=== PATIENT | female | born 1965 | race Caucasian/White ===

== ENCOUNTER → 2017-12-31 10:18 | Outpatient (CLI) | payer SELFPAY ==
[2017-12-31 12:50] LABS: Anion Gap 7 (5-15); BUN 12 mg/dL (7-18); BUN/Creat Ratio 17.4 RATIO (10-20); Calcium,Total 9.2 mg/dL (8.5-10.1); Chloride 104 mmol/L (98-107); Cholesterol 188 mg/dL (200); Creatinine, Serum 0.69 mg/dL (0.55-1.02); EST Glomerular Filtration Rate 94 mL/min (>60); Est Glom Filt Rate - Afr Amer 114 mL/min (>60); Glucose 84 mg/dL (74-106); High Density Lipoprotein 57 mg/dL; Potassium 3.9 mmol/L (3.5-5.1); Sodium Level 140 mmol/L (136-145); Triglycerides 79 mg/dL; Very Low Density Lipoprotein 16 mg/dL (5-40)
== END ==
PROVIDERS: Family Provider Family Medicine; PCP Family Medicine; Visit Provider Family Medicine
DX: Z00.00 Encounter for general adult medical examination without abnormal findings (principal)
CPT/HCPCS: 36415; 80048; 80061

== ENCOUNTER 2018-02-10 06:43 | Day surgery (SDC) | payer SELFPAY ==
--- NOTE | 2018-02-10 | COLBX_PTH ---
PATIENT: KEON RODNEY LOC: EN U#:[id number] AGE/SX: 52/F ROOM: RE02/10/[address]: Dr. Alli Meyer MD : 1965 BED: DIS: 02/10/2018 SPEC #: [id number] RECD: 02/10/18 11:13 STATUS: JUAN PUTNAMSimona #: [id number] SHANE: 02/10/18 00:[address]: Alli Meyer DEPT: SURGICAL PATHOLOGY RECD BY: Eliud Medrano ENTERED: 02/10/18 13:34 SP TYPE: COLON BX OTHR DR: Dr. Ko Camarillo MD Tissues: Cecum, NOS Procedures: Surgery Specimen Level IV HEADER OPERATION: Colonoscopy PRE-OP DIAGNOSIS: Family history colon CA TISSUE SUBMITTED: Cecum polyp biopsy MICROSCOPIC DIAGNOSIS Cecum polyp, biopsy: Fragments of colonic mucosa with focal pigment laden macrophages, consistent with melanosis coli. SJ:rica 4/4/18 MICROSCOPIC DESCRIPTION Slides are reviewed. GROSS DESCRIPTION Received in fixative is one container labeled with the patient's name and designated cecal polyp biopsy. The specimen consists of two irregular fragments of light edmond soft tissue that in aggregate measure 0.6 x 0.3 x 0.2 cm. The specimen is totally submitted in one cassette. / RY:rica 02/10/18 TC:5 CPT: 40831
[2018-02-10 07:15] VITALS: BP 106/66; PULSE 61; RESP 14; TEMP 36.3; O2SAT 97; BMI 34.0
--- NOTE | 2018-02-10 08:25 | PCM.HP.STD ---
Problem List (1) Family history of colon cancer in mother Status: Acute History of Present Illness Date of Admission: 02/10/18 The patient is a 52 year old F family history of colon cancer in her mother who that disease. The patient has had one previous colonoscopy 5 years prior. She had no difficulties with that procedure. She has no personal history of colon polyps. She otherwise states that she is enjoying good health. She denies abdominal pain. There is been no bright red blood per rectum or melena. Past Medical History Allergies No Known Allergies Allergy (Verified 02/04/18 16:09) Home Medications: Ambulatory Orders Medication Instructions Recorded Fluticasone 44 Mcg [Flovent (SP)] 2 puff INHALATION BID PRN 02/04/18 Surgical History: no surgical history Smoking Status: Never smoker Review of Systems Constitutional: Denies: Weight Change Eyes: Denies: Blurred vision, Vision Change HEENT: Denies: Ear Pain, Eye Pain Cardiovascular: Denies: Chest Pain, Claudication Respiratory: Denies: Cough, Shortness of Breath Gastrointestinal: Denies: Hematemesis, Hematochezia Genitourinary: Denies: Dysuria, Hematuria Musculoskeletal: Denies: Leg Pain Skin: Denies: Jaundice Neurological: Denies: Confusion Psychiatric: Denies: Depression Endocrine: Denies: Change in Body Habitus Hematologic/ Lymphatic: Denies: Easy Bleeding VTE Information - Inpt Only VTE Present on Admission: No Patient Problems: Active and Suspected Problems Family history of colon cancer in mother (Acute) - Physical Exam General: Alert, Oriented x3, Cooperative HEENT: Atraumatic Oral: Moist Mucosa Neck: Supple Lungs: Clear to auscultation Cardiovascular: Regular rate, Regular Rhythm Abdomen: Bowel Sounds Present, Soft, Non Tender Extremities: No clubbing Skin: No rashes Musculoskeletal: No Tenderness to Palpation of Joints or Extremities Neurological: Cranial nerves II-XII grossly intact Psych/Mental Status: Appropriate Vital Signs Temp Pulse Resp BP Pulse Ox 97.3 F L 61 14 106/66 97 02/10/18 07:15 02/10/18 07:15 02/10/18 07:15 02/10/18 07:15 02/10/18 07:15 Oxygen Delivery Method Room Air Weight: 197 lb 15.602 oz Body Mass Index (BMI) 34.0 Assessment/Plan Active and Suspected Problems Family history of colon cancer in mother (Acute) I am recommending the patient a colonoscopy with possible biopsy or polypectomy is indicated. She is aware of the technique, benefits, risks, alternatives. She is presenting via our open access program. We will proceed as noted. Alli Meyer M.D., F.A.C.S.
--- NOTE | 2018-02-10 08:47 | PCM.OPRPT ---
Problem List (1) Family history of colon cancer in mother Status: Acute Report of Operation Date of Procedure: 02/10/18 Pre-Operative Diagnosis: Family history of colon cancer in her mother Post-Operative Diagnosis: Sessile polyp of the cecum. Sigmoid and descending diverticulosis Surgery/Procedure Performed:: Colonoscopy with cold forceps cecal polypectomy Description of Surgical Findings:: Timeout and informed consent was obtained. 52-year-old female was taken to the endoscopy suite. She was placed in left loud skin position. Throughout the procedure in aliquots she received total 100 mg Demerol and 3.5 mg of Versed as intravenous sedation. Digital rectal exam performed. Moderate internal and external hemorrhoids. No active bleeding. Flexible colonoscope inserted the rectum advanced through moderately tortuous sigmoid colon. The scope was then readily advanced through the transverse colon. I then was able to nicely achieve access through the ascending colon. The cecum ileocecal valve area was nicely achieved. Bowel prep was good. There was still some liquid stool located throughout the colon but that could be aspirated free. Right on the ileocecal valve there appeared to be a small sessile 5 mm flat polyp. Photograph was obtained. Cold forceps were used to sample and eradicate that lesion. The scope was carefully withdrawn through the ascending colon transverse colon descending colon and sigmoid colon. Extensive sigmoid diverticulosis identified but no evidence of acute inflammatory change. The scope was retroflexed within the rectum. Hemorrhoidal changes noted. Excess fluid and air was aspirated free the procedure was completed with the patient tolerating it well. Impression Sessile polyp of the ileocecal valve. Final pathology pending. Family history of colon cancer in her mother. Patient's previous colonoscopy 5 years ago. Pending pathology will recommend follow-up colonoscopy in 5 years. Cc: Dr. Camarillo Medications were given at 0831. Scope was inserted at 0834. The cecum was reached at 0837. The procedure was completed at 0846. Alli Meyer M.D., F.A.C.S. Type of Anesthesia:: IV Sedation
[2018-02-10 08:50] VITALS: BP 106/66; BP 89/59; PULSE 64; RESP 18; TEMP 5390; TEMP 9734; O2SAT 94
[2018-02-10 08:55] VITALS: BP 106/66; BP 94/59; PULSE 59; RESP 18; O2SAT 93
[2018-02-10 09:00] VITALS: BP 106/66; BP 87/51; PULSE 62; RESP 18; O2SAT 96
[2018-02-10 09:06] VITALS: BP 106/66; BP 92/58; PULSE 61; RESP 18; TEMP 36.8; O2SAT 97
[2018-02-10 10:50] VITALS: BP 106/66
== END 2018-02-10 10:52 | disposition home or self-care (01) ==
LOC: EN 06:45 → AC 06:46
PROVIDERS: Family Provider Family Medicine; PCP Family Medicine; Visit Provider Surgery
PROC: 0DJD8ZZ Inspection of Lower Intestinal Tract, Via Natural or Artificial Opening Endoscopic (ICD-10-PCS; CPT 45378; principal; 2018-02-10 07:55)
DX: K63.89 Other specified diseases of intestine (principal); K57.30 Diverticulosis of large intestine without perforation or abscess without bleeding; K64.4 Residual hemorrhoidal skin tags; K64.8 Other hemorrhoids; Z80.0 Family history of malignant neoplasm of digestive organs
CPT/HCPCS: 45380; 88305; 99152; 99153; J7120

== ENCOUNTER 2020-01-01 15:00 | Emergency (ER) | payer OTHER, SELFPAY ==
[2020-01-01 15:01] VITALS: BP 119/72; PULSE 101; RESP 18; TEMP 36.9; O2SAT 96; BMI 31.6
--- NOTE | 2020-01-01 15:28 | EKG12_ITS ---
Test Reason : CP Blood Pressure : / mmHG Vent. Rate : 087 BPM Atrial Rate : 087 BPM P-R Int : 160 ms QRS Dur : 074 ms QT Int : 356 ms P-R-T Axes : 025 011 018 degrees QTc Int : 428 ms Normal sinus rhythm Low voltage QRS Borderline ECG Confirmed by DANIEL CALDERON, BEULAH ([id number]), advertising editor ZAC WHITNEY ([id number]) on 01/03/2020 2:38:58 PM Referred By: Confirmed By:ANGIE SANCHEZ MD
--- NOTE | 2020-01-01 15:33 | ED.DCSUM_ITS ---
History of Present Illness Chief Complaint: Allergic Reaction Informant: Patient Onset: Today Narrative: Patient states she woke up at midnight last night with what she believes is an allergic reaction. She states she had a headache that was located both in the posterior scalp as well as in the frontal region. She developed hives over her trunk and extremities. She is had some nausea and vomiting. She reports abdominal pain that seem to improve after she vomited. She has not noted fever or chills. She took some charcoal water last night thinking it might be an allergic reaction to some detox tea that she had drank. She does, however, states that she has had this same detox tea in the past without any difficulty. Past Medical History - Allergies and Home Meds Allergies/Adverse Reactions: Allergies No Known Allergies Allergy (Verified 01/01/20 15:01) Primary Care Physician: Ko Camarillo MD [Primary Care Provider] - Past Medical History: None Surgical History: no surgical history Lives: Spouse/ Significant Other Smoking Status: Never smoker Review of Systems General: Reports: Chills. Denies: Fever Eyes: Denies: Visual changes - bilaterally ENT: Denies: Bilateral ear pain, Sore throat Cardiovascular: Reports: Chest pain - Burning sensation in chest. Respiratory: Denies: Dyspnea, Cough Gastrointestinal: Reports: Abdominal pain, Nausea, Vomiting. Denies: Diarrhea Genitourinary: Denies: Dysuria Musculoskeletal: Denies: Extremity Pain Skin: Reports: Rash Neurological: Reports: Headache Allergy: Reports: Uticaria Physical Exam Vital Signs/Narrative: Vital Signs Temp Pulse Resp BP Pulse Ox 01/01/20 15:01 98.5 F 101 H 18 119/72 96 Inital Vital Signs reviewed: Yes General: Well nourished, Well developed Head: Normocephalic ENT: Moist mucous membranes Neck: Supple Cardiovascular: Regular rate, Regular rhythm Respiratory: No distress, CTA bilaterally Abdomen: Soft, Tender - Mild epigastric tenderness.. Negative for: Guarding, Rebound tenderness Extremities: Negative for: Nontender Skin: - - Urticarial lesions noted on the trunk and extremities, lower extremities greater than upper extremities. Neurological: Alert, Oriented x3 Psychological: Normal affect Diagnostic/Tx/Re-eval Laboratory Results 01/01/20 01/01/20 15:17 15:17 WBC 13.2 H RBC 5.50 H Hgb 15.5 H Hct 46.3 MCV 84.2 MCH 28.2 MCHC 33.5 RDW Std Deviation 39.8 RDW Coeff of Ashutosh 13.1 Plt Count 312 MPV 10.2 Immature Gran % (Auto) 0.500 Neut % (Auto) 86.6 H Lymph % (Auto) 8.2 L [place] % (Auto) 4.4 Eos % (Auto) 0.1 Baso % (Auto) 0.2 Absolute Neuts (auto) 11.4 H Absolute Lymphs (auto) 1.08 Nucleated RBC % 0 Sodium 136 Potassium 4.0 Chloride 104 Carbon Dioxide 24.0 Anion Gap 8 BUN 22 H Creatinine 0.75 Estim Creat Clear Calc 75.37 Est GFR (MDRD) Af Amer 103 Est GFR (MDRD) Non-Af 85 BUN/Creatinine Ratio 29.3 H Glucose 117 H Calcium 9.1 Total Bilirubin 0.40 Direct Bilirubin 0.11 AST 25 ALT 42 Alkaline Phosphatase 85 Troponin I < 0.015 Total Protein 6.8 Albumin 3.3 Globulin 3.5 Lipase 63 L - EKG Initial EKG Interpretation: Sinus Rhythm - Sinus 87 with no acute ischemia. - Medical Decision Making Patient was given Toradol, Reglan, Benadryl, Solu-Medrol, and Pepcid. On repeat evaluation she does feel improved. Hives are significantly improved. Patient be given prescriptions for steroids and Benadryl at home. She will avoid the detox tea that she had been drinking as this is the only change in her intake that she can think of. ED Disposition - Plan for ED Patient: Disposition: Home or Assisted Living Diagnosis: Urticaria, Cephalgia Instructions: ALLERGIC REACTION, Other (General), HEADACHE, Unspecified Prescriptions: DiphenhydrAMINE [Benadryl] 50 mg PO TID PRN PRN #20 capsule PRN Reason: Rash/Topical Irritation Prednisone [Deltasone] 60 mg PO DAILY #15 tablet Referrals: Ko Camarillo MD [Primary Care Provider] - 3-5 Days if not improving
--- NOTE | 2020-01-01 15:34 | ED.RN ---
NO OLD EKG
[2020-01-01 15:42] LABS: Absolute Lymphocyte Count 1.08 X10^3/uL (0.83-4.51); Absolute Neutrophil Count 11.4 X10^3/uL (2.0-7.7); Basophil# 0.03 X10^3/uL; Basophil% 0.2 % (0-1); Eosinophil# 0.01 X10^3/uL; Eosinophils% 0.1 % (0-5); Hematocrit 46.3 % (37-47); Hemoglobin 15.5 g/dL (12.0-15.0); Lymphocyte # 1.08 X10^3/ul (4.0); Lymphocyte % 8.2 % (19-41); Mean Corp Hgb Conc 33.5 g/dL (32-36); Mean Corpuscular Hgb 28.2 pg (27.0-32.0); Mean Corpuscular Volume 84.2 fL (81-99); Mean Platelet Vol. 10.2 fl (6.2-12.0); Monocyte# 0.58 X10^3/uL; Monocyte% 4.4 % (0-10); NRBC Flagged by Analyzer 0 % (0-5); Neutrophil % 86.6 % (47-70); Platelet Count 312 K/mm3 (150-450); RBC Distribution Width CV 13.1 % (11.6-14.6); RBC Distribution Width SD 39.8 fl (35.1-43.9); White Blood Count 13.2 K/mm3 (4.4-11.0)
[2020-01-01] MEDS: 0.9% Normal Saline 1,000 ML 150 ML IV (15:43)
[2020-01-01] MEDS: Famotidine 200 MG/20 ML MDV 20 MG in 0.9% Normal Saline (Pres. free 8 ML 300 MG IV (15:43)
[2020-01-01] MEDS: MethylPREDNISolone 125 MG/2 ML Vial IV (15:47)
[2020-01-01] MEDS: Ketorolac 30 MG/ML Syringe IV (15:48)
[2020-01-01] MEDS: Metoclopramide 10 MG/2 ML Vial IV (15:48)
[2020-01-01] MEDS: DiphenhydrAMINE 50 MG/ML Syringe 25 MG IV (15:48)
[2020-01-01 15:54] LABS: AST(SGOT) 25 U/L (15-37); Alanine Aminotransfer ALT/SGPT 42 U/L (13-56); Albumin, Serum 3.3 g/dL (3.2-5.0); Alkaline Phosphatase 85 U/L (45-117); Anion Gap 8 (5-15); BUN 22 mg/dL (7-18); BUN/Creat Ratio 29.3 RATIO (10-20); Bilirubin, Direct 0.11 mg/dL (0.00-0.30); Calcium,Total 9.1 mg/dL (8.5-10.1); Chloride 104 mmol/L (98-107); Creatinine, Serum 0.75 mg/dL (0.55-1.02); EST Glomerular Filtration Rate 85 mL/min (>60); Est Glom Filt Rate - Afr Amer 103 mL/min (>60); Estimated Creatinine Clearance 75.37 ml/min; Globulin 3.5 g/dL (2.2-4.2); Glucose 117 mg/dL (74-106); Lipase 63 U/L (73-393); Protein, Total 6.8 g/dL (6.4-8.2); Sodium Level 136 mmol/L (136-145)
[2020-01-01 17:17] VITALS: BP 134/69; PULSE 93; RESP 19; O2SAT 99
== END 2020-01-01 17:18 | disposition home or self-care (01) ==
PROVIDERS: Emergency Provider Emergency Medicine; PCP Family Medicine
DX: L50.9 Urticaria, unspecified (principal); R51 Headache
CPT/HCPCS: 80048; 80076; 83690; 84484; 85025; 93005; 96361; 96365; 96366; 96375; 99284; J7030; A4216; J3490

== ENCOUNTER 2020-01-02 14:52 | Emergency (ER) | payer OTHER, SELFPAY ==
[2020-01-01 15:01] VITALS: BMI 31.6
[2020-01-02 14:54] VITALS: BP 124/73; PULSE 82; RESP 18; TEMP 37.1; O2SAT 97; BMI 29.7
--- NOTE | 2020-01-02 15:16 | ED.VIS.GEN ---
History of Present Illness Chief Complaint: Allergic Reaction Informant: Patient Onset: Yesterday Current Severity: Moderate Maximum Severity: Moderate Narrative: Patient presents secondary to allergic reaction. Patient was seen in the ER yesterday after developing hives. The only thing out of her ordinary was she had drunk a detox tea. Patient was given steroids, Benadryl, and Pepcid in the emergency room. Hives were significantly improved when she left the emergency room. 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 Around midnight last night her hives started to worsen again. She woke up this morning with swelling of her upper lip as well as her eyelids. She states her eyelids are improved at this time. She continued to have some upper eyelid swelling as well as recurrent hives over her trunk and extremities. She did try some [id number] Benadryl approximate hour and a half ago with minimal improvement. She denies any tongue edema or throat tightness. - Past Medical History (1) Asthma Status: Chronic (2) Sleep apnea Status: Chronic (3) GERD (gastroesophageal reflux disease) Status: Chronic Past Medical History - Allergies and Home Meds Allergies/Adverse Reactions: Allergies No Known Allergies Allergy (Verified 01/02/20 14:56) Primary Care Physician: Ko Camarillo MD [Primary Care Provider] - Surgical History: no surgical history Lives: Spouse/ Significant Other Smoking Status: Never smoker Review of Systems General: Denies: Chills, Fever Eyes: Denies: Visual changes - bilaterally ENT: Denies: Bilateral ear pain Cardiovascular: Denies: Chest pain Respiratory: Denies: Dyspnea, Cough Gastrointestinal: Denies: Abdominal pain, Nausea, Vomiting, Diarrhea Genitourinary: Reports: - - Decreased urine output Musculoskeletal: Denies: Extremity Pain Skin: Reports: Rash Neurological: Denies: Headache Allergy: Reports: Uticaria, Swelling of the mouth. Denies: Swelling of the tongue Physical Exam Vital Signs/Narrative: Vital Signs Temp Pulse Resp BP Pulse Ox 01/02/20 14:54 98.7 F 82 18 124/73 H 97 Inital Vital Signs reviewed: Yes General: Well nourished, Well developed Head: Normocephalic, Atraumatic Eyes: Perrl, EOMI ENT: Moist mucous membranes, - - Swelling of the upper lip is noted. No tongue edema appreciated. Patient tolerating secretions well and has a strong voice. Neck: Supple Cardiovascular: Regular rate, Regular rhythm Respiratory: No distress, CTA bilaterally Abdomen: Soft, Nontender Back: Nontender Extremities: Nontender Skin: - - Urticarial lesions over the trunk and extremities, lower extremities greater than upper extremities. Neurological: Alert, Oriented x3 Psychological: Normal affect Diagnostic/Tx/Re-eval Laboratory Results 01/02/20 01/02/20 01/02/20 16:21 16:21 16:43 WBC 3.3 L RBC 5.46 H Hgb 15.1 H Hct 44.9 MCV 82.2 MCH 27.7 MCHC 33.6 RDW Std Deviation 39.0 RDW Coeff of Ashutosh 13.2 Plt Count 282 MPV 10.2 Immature Gran % (Auto) 0.300 Neut % (Auto) 69.3 Lymph % (Auto) 24.0 [place] % (Auto) 6.1 Eos % (Auto) 0.0 Baso % (Auto) 0.3 Absolute Neuts (auto) 2.3 Absolute Lymphs (auto) 0.79 L Nucleated RBC % 0 Differential Comment SCANNED Sodium 132 L Potassium 3.6 Chloride 100 Carbon Dioxide 23.0 Anion Gap 9 BUN 23 H Creatinine 0.85 Estim Creat Clear Calc 71.87 Est GFR (MDRD) Af Amer 89 Est GFR (MDRD) Non-Af 73 BUN/Creatinine Ratio 27.0 H Glucose 138 H Calcium 7.9 L Urine Color Jaqueline Urine Clarity Sl. Cloudy Urine pH 5.0 Ur Specific [place] 1.025 Urine Protein 30 H Urine Glucose (UA) Normal Urine Ketones 15 H Urine Occult Blood Negative Urine Nitrite Negative Urine Bilirubin Negative Urine Urobilinogen Normal Ur Leukocyte Esterase 25 H Urine RBC 0 SEEN Urine WBC 5-10 SEEN Ur Squamous Epith Cells 5-10 SEEN Urine Bacteria 1+ Urine Mucus RARE - Medical Decision Making Patient was given Solu-Medrol, Benadryl, Pepcid. Multiple repeat evaluations reveal improving urticarial lesions. Upper lip swelling is significantly improved. Patient was able to give us a urine stable without difficulty and her bladder scan did not show significant retained urine. At this time her exam is still consistent with urticarial reaction. I encouraged them to be sure she takes Benadryl every 6 hours. She is next due for steroids and Pepcid tomorrow. Prescriptions were sent to the pharmacy yesterday but I will also add Pepcid. ED Disposition - Plan for ED Patient: Disposition: Home or Assisted Living Diagnosis: Urticaria, Allergic reaction Instructions: ALLERGIC REACTION, Other (General), Hives Prescriptions: Famotidine [Pepcid] 20 mg PO BID #28 tab Transmission Status: Pending to [id number] Referrals: Ko Camarillo MD [Primary Care Provider] - 3-5 Days
[2020-01-02] MEDS: 0.9% Normal Saline 1,000 ML 150 ML IV (15:29)
[2020-01-02] MEDS: DiphenhydrAMINE 50 MG/ML Syringe 25 MG IV (15:30)
[2020-01-02] MEDS: MethylPREDNISolone 125 MG/2 ML Vial IV (15:30)
[2020-01-02] MEDS: Famotidine 200 MG/20 ML MDV 20 MG in 0.9% Normal Saline (Pres. free 8 ML 300 MG IV (15:37)
[2020-01-02 16:22] VITALS: BP 108/67; PULSE 83; RESP 24; O2SAT 100
[2020-01-02 16:36] LABS: Absolute Lymphocyte Count 0.79 X10^3/uL (0.83-4.51); Absolute Neutrophil Count 2.3 X10^3/uL (2.0-7.7); Basophil# 0.01 X10^3/uL; Basophil% 0.3 % (0-1); Hematocrit 44.9 % (37-47); Hemoglobin 15.1 g/dL (12.0-15.0); Lymphocyte # 0.79 X10^3/ul (4.0); Mean Corp Hgb Conc 33.6 g/dL (32-36); Mean Corpuscular Hgb 27.7 pg (27.0-32.0); Mean Corpuscular Volume 82.2 fL (81-99); Mean Platelet Vol. 10.2 fl (6.2-12.0); Monocyte% 6.1 % (0-10); NRBC Flagged by Analyzer 0 % (0-5); Neutrophil # 2.28 X10^3/uL (2.7-7.7); Neutrophil % 69.3 % (47-70); POSITIVE MORPHOLOGY YES; Platelet Count 282 K/mm3 (150-450); RBC Distribution Width CV 13.2 % (11.6-14.6); Red Blood Count 5.46 M/mm3 (4.2-5.4); White Blood Count 3.3 K/mm3 (4.4-11.0)
[2020-01-02 16:39] LABS: Differential Indicated SCAN CRITERIA MET
[2020-01-02 16:48] LABS: Red Blood Cells-Urine 0 SEEN /hpf (0-5)
[2020-01-02 16:49] LABS: Color, Urine Amber (Yellow); Glucose, Dipstick Normal (Normal); Ketone-Dipstick 15 mg/dl (Negative); Leukocyte Esterase-Dipstick 25 /ul (Negative); Nitrite-Dipstick Negative (Negative); Occult Blood-Urine Negative /ul (Negative); Protein-Dipstick 30 mg/dl (Negative); Specific Gravity, Urine 1.025 (1.002-1.030); Urine Bilirubin Dipstick Negative (Negative); Urine Clarity Sl. Cloudy (Clear); Urine Urobilinogen Normal (Normal)
[2020-01-02 16:57] LABS: Anion Gap 9 (5-15); BUN 23 mg/dL (7-18); Calcium,Total 7.9 mg/dL (8.5-10.1); Chloride 100 mmol/L (98-107); Creatinine, Serum 0.85 mg/dL (0.55-1.02); EST Glomerular Filtration Rate 73 mL/min (>60); Est Glom Filt Rate - Afr Amer 89 mL/min (>60); Estimated Creatinine Clearance 71.87 ml/min; Glucose 138 mg/dL (74-106); Potassium 3.6 mmol/L (3.5-5.1); Sodium Level 132 mmol/L (136-145)
[2020-01-02 16:58] LABS: Differential Comment SCANNED
[2020-01-02 17:01] LABS: White Blood Cells 5-10 SEEN /hpf (0-5)
[2020-01-02 17:02] VITALS: BP 106/76; PULSE 84; RESP 23; O2SAT 97
[2020-01-02 17:02] LABS: Bacteria 1+ /hpf (None Seen); Mucous, Urine RARE /hpf (<or=2+); Squamous Epithelial Cells - UA 5-10 SEEN /hpf (5-10)
[2020-01-02 18:16] VITALS: BP 104/85; PULSE 86; RESP 20; O2SAT 94
--- NOTE | 2020-01-02 18:17 | ED.RN ---
REVIEWED D/C INSTRUCTIONS, FOLLOW UP CARE, PRESCRIPTIONS, AND S/S THAT WOULD WARRANT A RETURN TO THE ED WITH PT AND PT'S . BOTH VERBALIZED AN UNDERSTANDING AND DENY FURTHER QUESTIONS FOR THIS RN. PT SKIN P/W/D, RESP EVEN AND UNLABORED, PT A&O X 3, NO DISTRESS NOTED. PT AMBULATED OUT OF ED, GAIT STEADY.
== END 2020-01-02 18:18 | disposition home or self-care (01) ==
PROVIDERS: Emergency Provider Emergency Medicine; PCP Family Medicine
DX: L50.0 Allergic urticaria (principal)
CPT/HCPCS: 36415; 80048; 81001; 85025; 96361; 96374; 96375; 99285; A4216; J3490

== ENCOUNTER → 2020-04-13 14:01 | Outpatient (CLI) | payer OTHER, SELFPAY ==
[2020-04-13 15:03] LABS: Cholesterol 175 mg/dL (200); High Density Lipoprotein 56 mg/dL; Triglycerides 65 mg/dL; Very Low Density Lipoprotein 13 mg/dL (5-40)
== END ==
PROVIDERS: PCP Family Medicine; Visit Provider Family Medicine
DX: Z13.220 Encounter for screening for lipoid disorders (principal)
CPT/HCPCS: 36415; 80061

== ENCOUNTER → 2020-05-23 | Outpatient (CLI) | payer OTHER, SELFPAY ==
--- NOTE | 2020-05-23 | EMB_PTH ---
PATIENT: KEON RODNEY LOC: [facility] U#:[id number] AGE/SX: 54/F ROOM: RE05/23/[address]: Dr. Neftaly Gan MD : 1965 BED: DIS: 05/23/2020 SPEC #: [id number] RECD: 05/24/20 11:03 STATUS: JUAN DEREK #: [id number] SHANE: 05/23/20 00:[address]: Neftaly Gan DEPT: SURGICAL PATHOLOGY RECD BY: Vicky Araujo ENTERED: 05/24/20 12:01 SP TYPE: ENDOM BX/C GORDY DR: Dr. Ko Camarillo MD Tissues: Endometrium, NOS Procedures: Surgery Specimen Level IV HEADER OPERATION: Endometrial biopsy PRE-OP DIAGNOSIS: N95.0 TISSUE SUBMITTED: Endometrial biopsy MICROSCOPIC DIAGNOSIS Endometrium, biopsy: Scant strips of benign superficial glandular mucosa. AM:rica 05/25/20 MICROSCOPIC DESCRIPTION Slides are reviewed. GROSS DESCRIPTION Received in fixative is one container labeled with the patient's name and designated EM biopsy. The specimen consists of multiple elongated fragments of hemorrhagic soft tissue that in aggregate measure 3 x 2.5 x 0.2 cm. The specimen is totally submitted in one cassette. / SJ:rica 05/24/20 TC:5 CPT: 06370
[2020-05-27 15:35] LABS: HPV Reflexed? NOT INDICATED
== END | disposition home or self-care (01) ==
LOC: LABSPEC 05-24 14:49
PROVIDERS: PCP Family Medicine; Referring Provider Obstetrics & Gynecology; Visit Provider Obstetrics & Gynecology
DX: Z12.4 Encounter for screening for malignant neoplasm of cervix (principal); N95.0 Postmenopausal bleeding
CPT/HCPCS: 88175; 88305; G0145

== ENCOUNTER → 2020-10-18 15:43 | Outpatient (CLI) | payer OTHER, SELFPAY ==
[2020-10-18 18:15] LABS: Free T3 2.4 pg/mL (2.18-3.98); Thyroid Stim Hormone (TSH) 4.57 uIU/mL (0.358-3.74)
== END ==
PROVIDERS: PCP Family Medicine; Referring Provider Family Medicine; Visit Provider Family Medicine
DX: E03.9 Hypothyroidism, unspecified (principal)
CPT/HCPCS: 36415; 84439; 84443; 84481

== ENCOUNTER → 2022-11-18 | Outpatient (CLI) | payer OTHER, SELFPAY ==
[2022-11-18 15:50] LABS: Absolute Lymphocyte Count 2.44 X10^3/uL (0.83-4.51); Absolute Neutrophil Count 5.6 X10^3/uL (2.0-7.7); Basophil# 0.06 X10^3/uL; Basophil% 0.7 % (0-1); Eosinophil# 0.46 X10^3/uL; Hematocrit 44.1 % (37-47); Hemoglobin 14.5 g/dL (12.0-15.0); Lymphocyte # 2.44 X10^3/ul (0.83-4.51); Lymphocyte % 26.6 % (19-41); Mean Corp Hgb Conc 32.9 g/dL (32-36); Mean Corpuscular Hgb 28.8 pg (27.0-32.0); Mean Corpuscular Volume 87.5 fL (81-99); Mean Platelet Vol. 9.8 fl (6.2-12.0); Monocyte# 0.62 X10^3/uL; Monocyte% 6.7 % (0-10); NRBC Flagged by Analyzer 0 % (0-5); Neutrophil # 5.55 X10^3/uL (2.7-7.7); Neutrophil % 60.3 % (47-70); Platelet Count 279 K/mm3 (150-450); RBC Distribution Width CV 13.2 % (11.6-14.6); RBC Distribution Width SD 42.2 fl (35.1-43.9); Red Blood Count 5.04 M/mm3 (4.2-5.4); White Blood Count 9.2 K/mm3 (4.4-11.0)
[2022-11-21 11:08] LABS: Alternaria alternata <0.10 kU/L (Class 0); Bermuda Grass <0.10 kU/L (Class 0); Bluegrass, Kentucky <0.10 kU/L (Class 0); Cat Hair/Dander, Standard <0.10 kU/L (Class 0); D farinae Mite <0.10 kU/L (Class 0); D pteronyssinus <0.10 kU/L (Class 0); Dog Epithelia <0.10 kU/L (Class 0); Elm, American White <0.10 kU/L (Class 0); Oak, White <0.10 kU/L (Class 0); Plantain, English <0.10 kU/L (Class 0); Ragweed, Short/Common <0.10 kU/L (Class 0)
[2022-11-21 21:55] LABS: Mouse Urine <0.10 kU/L (Class 0)
[2022-11-22 20:07] LABS: Aspirgillus flavus Negative (Neg:<1:1); Aspirgillus fumigatus Negative (Neg:<1:1); Aspirgillus niger Negative (Neg:<1:1)
[2022-11-23 14:45] LABS: Immunoglobulin E 38 IU/mL (6-495)
== END | disposition home or self-care (01) ==
LOC: PAVLAB 15:34
PROVIDERS: PCP Family Medicine; Referring Provider Internal Medicine; Visit Provider Internal Medicine
DX: J45.909 Unspecified asthma, uncomplicated (principal)
CPT/HCPCS: 36415; 82785; 85025; 86003; 86606

== ENCOUNTER → 2022-11-18 | Outpatient (CLI) | payer SELFPAY, OTHER ==
--- NOTE | 2022-11-18 15:55 | RAD_ITS ---
INDICATION: cough EXAMINATION/TECHNIQUE: X-RAY - XR Chest 2 Views COMPARISON: October 21, 2022. FINDINGS: LINES/DEVICES: None. LUNGS: No consolidation, edema or effusion. Improved aeration in the right upper lung. No pneumothorax. MEDIASTINUM AND CARDIOVASCULAR STRUCTURES: Cardiac silhouette not enlarged. Mild aortic atherosclerosis and tortuosity. BONES AND SOFT TISSUES: Unremarkable. RAD/Chest PA and Lateral IMPRESSION: No radiographic evidence of acute cardiopulmonary disease. Electronically Signed: Temo Hill MD at 8:09 EST ,
== END | disposition home or self-care (01) ==
PROVIDERS: PCP Family Medicine; Visit Provider Internal Medicine
DX: J45.909 Unspecified asthma, uncomplicated (principal); R05.9 Cough, unspecified
CPT/HCPCS: 71046

== ENCOUNTER → 2022-11-20 | Outpatient (CLI) | payer SELFPAY, OTHER ==
--- NOTE | 2022-11-21 13:34 | PFT ---
INTRODUCTION: The patient is a 57-year-old female that presents for pulmonary function studies secondary to a diagnosis of asthma. Respiratory therapy reported good patient effort. Bronchodilators were used during testing. INTERPRETATION: Forced expiration spirometry demonstrates no evidence of a large airways obstructive ventilatory defect. There was no significant response to aerosolized bronchodilators. Spirograms are of good quality and plateau normally. Body plethysmography was performed and reveals lung volumes to be within normal limits. Diffusing capacity by single breath CO was likewise within normal limits. IMPRESSION: Grossly normal pulmonary function studies.
== END | disposition home or self-care (01) ==
PROVIDERS: PCP Family Medicine; Referring Provider Internal Medicine; Visit Provider Internal Medicine
DX: J45.909 Unspecified asthma, uncomplicated (principal)
CPT/HCPCS: 94060; 94726; 94729

== ENCOUNTER → 2022-12-17 | Outpatient (CLI) | payer OTHER, SELFPAY ==
[2022-12-17 14:01] LABS: Hemoglobin A1c 5.4 % (3.8-5.6)
== END | disposition home or self-care (01) ==
LOC: PAVLAB 11:55
PROVIDERS: PCP Family Medicine; Referring Provider Internal Medicine; Visit Provider Internal Medicine
DX: R73.9 Hyperglycemia, unspecified (principal)
CPT/HCPCS: 36415; 83036

== ENCOUNTER 2023-02-25 06:37 | Day surgery (SDC) | payer SELFPAY, OTHER ==
[2023-02-25 07:11] VITALS: BP 118/71; PULSE 69; RESP 18; TEMP 36.2; O2SAT 96; BMI 37.0
[2023-02-25] MEDS: Lactated Ringers 1,000 ML 15 ML IV (07:20)
--- NOTE | 2023-02-25 07:45 | HP.PCM_ITS ---
[facility] - General General Date of Service: 02/25/23 Chief Complaint: History of colon polyps and family history of colon cancer in her mother HPI Narrative KEON RODNEY, is a 57 F who presents presents for a colonoscopy today. She otherwise enjoys good health. No bright red blood per rectum or melena. No abdominal pain. No history of DVT. Previous colonoscopy was February 2018. [facility] Medical History (Updated 02/25/23 @ 07:[address] Alli Meyer MD) Allergic rhinitis due to allergen Central sleep apnea CPAP (continuous positive airway pressure) dependence Easy bruising History of anaphylaxis History of steroid therapy Hives Hyperglycemia Lung disease Perennial non-allergic rhinitis Pneumonia Post-menopausal Wears glasses Home Medications albuterol sulfate 2.5 mg/3 mL (0.083 %) solution for nebulization 2.5 mg (3 mL) continuous nebulization ONCE #1 mL 10/21/22 [Clinic Last Taken Unknown] albuterol sulfate 90 mcg/actuation aerosol inhaler (ProAir HFA) 1 inh inhalation Q6H PRN shortness of breath or wheezing #6.7 grams 10/21/22 [Rx Last Taken Unknown] inhalational spacing device (Aerochamber MV spacer) #1 ea 11/18/22 [Rx Last Taken Unknown] ascorbic acid (vitamin C) 1,000 mg tablet (Vitamin C) 1,000 mg PO DAILY 02/19/23 [History Last Taken Unknown] magnesium 200 mg tablet 400 mg PO DAILY 02/19/23 [History Last Taken Unknown] Allergy/AdvReac Type Severity Reaction Status Date / Time wheat Allergy Unknown unknown Verified 02/19/23 14:48 Fish Containing Products Allergy PT UNSURE Verified 02/19/23 14:48 OF REACTION Family History (Updated 01/01/23 @ 11:23 by Elisabet Riojas) Mother Colon cancer Other Lung cancer Surgical History (Updated 02/19/23 @ 14:58 by Melissa Marin) History of basal cell carcinoma (BCC) excision History of colonoscopy Social History (Updated 01/01/23 @ 11:23 by Elisabet Riojas) household members: spouse current occupational status: employed Smoking Status: Never smoker alcohol intake: never ROS Constitutional Constitutional: Reports systems reviewed and no addt'l complaints, except as documented Cardiovascular Cardiovascular: Denies chest pain Respiratory/Chest Respiratory/Chest: Denies shortness of breath at rest Gastrointestinal Gastrointestinal: Denies abdominal pain, change in bowel habits, hematochezia or melena Vital Signs Vital Signs Vital Signs: 02/25/23 07:11 02/25/23 07:11 Temperature 97.2 F L Temperature Source Temporal Pulse Rate 69 Respiratory Rate 18 Respiratory Pattern Normal Blood Pressure 118/71 Blood Pressure Mean 86 Blood Pressure Source Monitor Blood Pressure Position Semi-Fowlers Blood Pressure Location Left Arm Pulse Ox 96 Oxygen Delivery Method Room Air Weight Weight: 215 lb 13.321 oz Body Mass Index (BMI) 37.0 Physical Exam Const alert, oriented x3 and no apparent distress General Appearance: cooperative and comfortable Eyes General Eye: normal appearance of both eyes Neck General: normal visual inspection Chest inspection of chest normal Resp Effort and Inspection: able to speak in complete sentences and symmetric chest movement Auscultation: clear to auscultation bilaterally Cardio regular rate and regular rhythm GI soft to palpation, non-tender and non-distended Extremity no calf tenderness Neuro oriented x3 Psych thought process normal Assessment & Plan Assessment/Plan (1) Family history of colon cancer in mother: (2) Personal history of colonic polyps: PLAN: Plan to pursue a colonoscopy with possible biopsy or polypectomy as indicated. She is aware of the technique, benefit, risk, alternatives. She presents via open access today. We will proceed as noted. Alli Meyer M.D., F.A.C.S.
--- NOTE | 2023-02-25 08:00 | COLBX_PTH ---
PATIENT: KEON RODNEY LOC: EN U#:[id number] AGE/SX: 57/F ROOM: RE02/25/[address]: Dr. Alli Meyer MD : 1965 BED: DIS: 02/25/2023 SPEC #: [id number] RECD: 02/25/23 10:06 STATUS: JUAN DEREK #: [id number] SHANE: 02/25/23 08:[address]: Alli Meyer DEPT: SURGICAL PATHOLOGY RECD BY: Deidre Lindsay ENTERED: 02/25/23 10:50 SP TYPE: COLON BX OTHR DR: Dr. Kim Aguilar MD Tissues: Sigmoid colon biopsy Procedures: Surgery Specimen Level IV HEADER OPERATION: Colonoscopy with biopsy, open access (MAC) PRE-OP DIAGNOSIS: Screening TISSUE SUBMITTED: Distal sigmoid polyp biopsy MICROSCOPIC DIAGNOSIS Distal sigmoid colon polyp, biopsy: Fragments of hyperplastic polyp. AM:rica 02/26/2023 MICROSCOPIC DESCRIPTION Slides are reviewed. GROSS DESCRIPTION Received in fixative is one container labeled with the patient's name and designated distal sigmoid polyp biopsy. The specimen consists of multiple irregular fragments of light edmond soft tissue that in aggregate measure 1.0 x 0.3 x 0.1 cm. The specimen is totally submitted in one cassette. / SJ:rica 02/25/2023 TC:5 CPT: 95696
--- NOTE | 2023-02-25 08:52 | OP.COLON_ITS ---
Patient Name: Becky Stein Procedure Date: 02/25/2023 8:23 AM Date of : 1965 Age: 57 Procedure: Colonoscopy Indications: High risk colon cancer surveillance: Personal history of colonic polyps, Family history of colon cancer in a first-degree relative Providers: Alli Meyer MD Referring MD: Ko Camarillo MD Medicines: See the Anesthesia note for documentation of the administered medications Patient Profile: Last Colonoscopy: February 2018. Complications: No immediate complications. Procedure: Pre-Anesthesia Assessment: - Prior to the procedure, a History and Physical was performed, and patient medications and allergies were reviewed. The patient's tolerance of previous anesthesia was also reviewed. The risks and benefits of the procedure and the sedation options and risks were discussed with the patient. All questions were answered, and informed consent was obtained. Prior Anticoagulants: The patient has taken no previous anticoagulant or antiplatelet agents. ASA Grade Assessment: II - A patient with mild systemic disease. After reviewing the risks and benefits, the patient was deemed in satisfactory condition to undergo the procedure. After I obtained informed consent, the scope was passed under direct vision. Throughout the procedure, the patient's blood pressure, pulse, and oxygen saturations were monitored continuously. The Colonoscope was introduced through the anus and advanced to the cecum, identified by appendiceal orifice and ileocecal valve. The colonoscopy was performed without difficulty. The patient tolerated the procedure well. The quality of the bowel preparation was good. The ileocecal valve and the appendiceal orifice were photographed. Scope In: 8:31:10 AM Scope Withdrawal Time 0 hours 12 minutes 28 seconds Scope Out: 8:47:25 AM Total Procedure Duration Time 0 hours 16 minutes 15 seconds Findings: Hemorrhoids were found on perianal exam. A 6 mm polyp was found in the distal sigmoid colon. The polyp was sessile. The polyp was removed with a cold biopsy forceps. Resection and retrieval were complete. Multiple diverticula were found in the sigmoid colon. Impression: - Hemorrhoids found on perianal exam. - One 6 mm polyp in the distal sigmoid colon, removed with a cold biopsy forceps. Resected and retrieved. - Diverticulosis in the sigmoid colon. Recommendation: - Discharge patient to home. - Resume previous diet. - Continue present medications. - Repeat colonoscopy in 5 years for surveillance. - Telephone my office for pathology results in 1 week. Procedure Code(s): --- Professional --- 01290, Colonoscopy, flexible; with biopsy, single or multiple Diagnosis Code(s): --- Professional --- Z86.010, Personal history of colonic polyps K64.9, Unspecified hemorrhoids D12.5, Benign neoplasm of sigmoid colon Z80.0, Family history of malignant neoplasm of digestive organs K57.30, Diverticulosis of large intestine without perforation or abscess without bleeding CPT copyright 2017 [employer]. All rights reserved. The codes documented in this report are preliminary and upon ent consultant review may be revised to meet current compliance requirements. Alli Meyer MD 02/25/2023 8:52:10 AM This report has been signed electronically. Number of Addenda: 0 Note Initiated On: 02/25/2023 8:23 AM
--- NOTE | 2023-02-25 08:53 | OP.CCLET_ITS ---
02/25/2023 Ko Camarillo MD [address] [place] [address] Re : Colonoscopy procedure for Becky Stein Dear Dr. Camarillo This procedure was performed on Saturday, February 25, 2023. My impressions and recommendations are as follows: Impressions : - Hemorrhoids found on perianal exam. - One 6 mm polyp in the distal sigmoid colon, removed with a cold biopsy forceps. Resected and retrieved. - Diverticulosis in the sigmoid colon. Recommendations : - Discharge patient to home. - Resume previous diet. - Continue present medications. - Repeat colonoscopy in 5 years for surveillance. - Telephone my office for pathology results in 1 week. My findings are described in the full procedure note, which is enclosed. If I can be of further assistance, please feel free to contact me at Doctor phone number(s): Work: . Sincerely, Alli Meyer MD 02/25/2023 8:52:10 AM This report has been signed electronically.
[2023-02-25 08:54] VITALS: BP 106/65; BP 118/71; PULSE 64; RESP 16; TEMP 36.8; O2SAT 96
[2023-02-25 08:59] VITALS: BP 104/67; BP 118/71; PULSE 62; RESP 16; O2SAT 99
[2023-02-25 09:04] VITALS: BP 118/71; BP 95/66; PULSE 65; RESP 16; O2SAT 99
[2023-02-25 09:09] VITALS: BP 108/69; BP 118/71; PULSE 56; RESP 16; TEMP 36.4; O2SAT 95
[2023-02-25 09:33] VITALS: BP 118/71
== END 2023-02-25 09:36 | disposition home or self-care (01) ==
LOC: EN 06:41 → AC 06:42
PROVIDERS: PCP Internal Medicine; Referring Provider Internal Medicine; Visit Provider Surgery
PROC: 0DJD8ZZ Inspection of Lower Intestinal Tract, Via Natural or Artificial Opening Endoscopic (ICD-10-PCS; CPT 45378; principal; 2023-02-25 07:55)
DX: Z12.11 Encounter for screening for malignant neoplasm of colon (principal); D12.5 Benign neoplasm of sigmoid colon; K64.9 Unspecified hemorrhoids; K57.30 Diverticulosis of large intestine without perforation or abscess without bleeding; G47.31 Primary central sleep apnea; Z99.89 Dependence on other enabling machines and devices; Z86.010 Personal history of colon polyps; Z80.0 Family history of malignant neoplasm of digestive organs
CPT/HCPCS: 45380; 88305; J7120; J2405

== ENCOUNTER → 2023-06-18 | Outpatient (CLI) | payer SELFPAY, OTHER ==
--- NOTE | 2023-06-18 11:51 | CT_ITS ---
STUDY: CT CHEST WITHOUT CONTRAST REASON FOR EXAM: Female, 57 years old. CALCIUM SCORE. Over read examination only. RADIATION DOSAGE (If Supplied By Facility): CTDIvol = ( 12.19 ) mGy, DLP = ( 195.04 ) mGycm TECHNIQUE: Transaxial imaging was performed without the administration of intravenous contrast material. Individualized dose optimization techniques were used for this CT. COMPARISON: No relevant priors. FINDINGS: CHEST Minimal scarring and bronchiectasis in the lingular segment of the left upper lobe as well as the medial aspect of the right middle lobe. There is no demonstrated pleural abnormality. No coronary calcification is seen. There are small lymph nodes within the mediastinum, which are normal in size and morphology most compatible with reactive lymph hyperplasia. Normal hilar regions. Normal unenhanced pulmonary arteries. There is atherosclerotic calcification of the aortic arch. Normal osseous structures. Fatty infiltration of the liver. CT/Limited Chest CT Cardiac Only IMPRESSION: No coronary artery calcification is seen. Mild scarring in the lingula segment of the left upper lobe and medial aspect of the right middle lobe with bronchiectasis. Electronically Signed: Blair Zhao MD at 13:08 EDT ,
--- NOTE | 2023-07-15 12:07 | CA.SCORE ---
Calcium Scoring Date of Study:: 06/18/23 Indications Indications: Family history and palpitations Coronary Calcium Scoring: High-resolution Computed Tomographic imaging of the chest was performed on [ ], with particular attention paid to the coronary arteries. Images from the examination were analyzed for the presence and extent of coronary artery calcification , using coronary calcium quantification software. The patient tolerated the procedure well and there were no complications. The results of the coronary calcification analysis are provided below. Findings Coronary Artery Left Main (LM): 0 Left Anterior Descending (LAD): 0 Left Circumflex (LCX): 0 Right Coronary Artery (RCA): 0 Total Agatston Score: 0 Percentile Rankinth percentile Calcium Scoring Interpretation: Different methods to categorize the overall amount of coronary plaque. Overall amount CAC SIS Visual of coronary plaque P1 Mild -100 <2 1-2 vessels with mild amount of plaque P2 Moderate 101-300 3-4 1-2 vessels with moderate amount, 3 vessels with mild amount of plaque P3 Severe 301-999 5-7 3 vessels with moderate amount, 1 vessel with severe amount of plaque P4 Extensive >1000 >8 2-3 vessels with severe amount of plaque Conclusion: No significant atherosclerotic plaquing noted.
== END | disposition home or self-care (01) ==
LOC: CT 11:41
PROVIDERS: PCP Internal Medicine; Referring Provider Internal Medicine Cardiovascular Disease; Visit Provider Internal Medicine Cardiovascular Disease
DX: R00.2 Palpitations (principal)
CPT/HCPCS: 75571; 76380

== ENCOUNTER → 2023-08-20 | Outpatient (CLI) | payer OTHER, SELFPAY ==
[2023-08-25 14:08] LABS: HPV APTIMA, High Risk Negative (Negative)
== END | disposition home or self-care (01) ==
LOC: LABSPEC 16:44
PROVIDERS: PCP Internal Medicine; Referring Provider Obstetrics & Gynecology; Visit Provider Obstetrics & Gynecology
DX: Z12.4 Encounter for screening for malignant neoplasm of cervix (principal)
CPT/HCPCS: 87624; 88175; G0145

== ENCOUNTER → 2023-09-23 | Outpatient (CLI) | payer SELFPAY, OTHER ==
--- NOTE | 2023-09-23 08:48 | BI_ITS ---
MAMMOGRAPHY - BILATERAL SCREENING REASON FOR EXAM: Female, 57 years old. Routine annual screening examination. PERTINENT HISTORY: Non-contributory. TECHNIQUE: Digital bilateral breast phyllis (3D mammographic acquisition) in the CC and MLO projections. 2-D mediolateral oblique (MLO) and craniocaudad (CC) views of both breasts were obtained. CAD: Full Field Digital Mammography with Computer Added Detection was performed. COMPARISON: No comparison mammograms available at this time. If any prior films become available, an addendum to this report can be generated. FINDINGS: Breast Composition: There are scattered areas of fibroglandular density. There are no dominant masses or suspicious calcifications. Small fat-containing bilateral axillary lymph nodes. No other significant abnormalities are identified. BI/SCRN MAMM (CAD)W/PHYLLIS BILAT IMPRESSION: Negative screening mammogram. Yearly followup mammogram recommended. (A) ASSESSMENT CATEGORY: Approximately 10% of breast cancers are not detected by mammography. A normal mammogram should not delay biopsy of a clinically suspicious abnormality. [id number] Electronically Signed: Blair Zhao MD at 10:24 EST ,
== END | disposition home or self-care (01) ==
LOC: OPBI 08:45
PROVIDERS: PCP Internal Medicine; Referring Provider Obstetrics & Gynecology; Visit Provider Obstetrics & Gynecology
DX: Z12.31 Encounter for screening mammogram for malignant neoplasm of breast (principal)
CPT/HCPCS: 77063; 77067

== ENCOUNTER → 2023-10-17 | Outpatient (CLI) | payer OTHER, SELFPAY ==
--- NOTE | 2023-10-17 16:03 | RAD_ITS ---
STUDY: X-RAY CHEST REASON FOR EXAM: Female, 58 years old. Cough TECHNIQUE: PA and lateral views of the chest. COMPARISON: 11/18/2022 FINDINGS: The lungs are clear and expanded. There is no demonstrated pleural abnormality. Normal size heart. Normal mediastinum and ambreen. Normal visualized pulmonary arteries. Normal visualized aortic arch and descending thoracic aorta. Normal visualized thoracic spine. Normal visualized ribs, clavicles, and shoulders. There is no demonstrated abnormality of the visualized soft tissue structures of the upper abdomen. RAD/Chest PA and Lateral IMPRESSION: No acute pulmonary process Electronically Signed: Jean-Paul Alexandre MD at 16:14 EST ,
== END | disposition home or self-care (01) ==
PROVIDERS: PCP Internal Medicine; Referring Provider Physician Assistant Surgical; Visit Provider Physician Assistant Surgical
DX: J20.9 Acute bronchitis, unspecified (principal)
CPT/HCPCS: 71046; 87798

== ENCOUNTER → 2023-11-26 | Outpatient (CLI) | payer OTHER, SELFPAY ==
[2023-11-26 12:20] LABS: Absolute Lymphocyte Count 2.32 X10^3/uL (0.83-4.51); Absolute Neutrophil Count 5.4 X10^3/uL (2.0-7.7); Basophil# 0.05 X10^3/uL; Basophil% 0.6 % (0-1); Eosinophil# 0.24 X10^3/uL; Eosinophils% 2.8 % (0-5); Hematocrit 44.1 % (37-47); Hemoglobin 14.2 g/dL (12.0-15.0); Lymphocyte # 2.32 X10^3/ul (0.83-4.51); Lymphocyte % 27.2 % (19-41); Mean Corp Hgb Conc 32.2 g/dL (32-36); Mean Corpuscular Hgb 27.9 pg (27.0-32.0); Mean Corpuscular Volume 86.6 fL (81-99); Monocyte# 0.46 X10^3/uL; Monocyte% 5.4 % (0-10); NRBC Flagged by Analyzer 0 % (0-5); Neutrophil # 5.41 X10^3/uL (2.7-7.7); Neutrophil % 63.5 % (47-70); Platelet Count 297 K/mm3 (150-450); RBC Distribution Width CV 12.9 % (11.6-14.6); RBC Distribution Width SD 40.9 fl (35.1-43.9); Red Blood Count 5.09 M/mm3 (4.2-5.4); White Blood Count 8.5 K/mm3 (4.4-11.0)
[2023-11-26 12:49] LABS: Vitamin D,25 Hydroxy 41.1 ng/mL
[2023-11-26 13:25] LABS: ALB/GLOB Ratio 0.9 RATIO (0.9-2.4); AST(SGOT) 18 U/L (15-37); Alanine Aminotransfer ALT/SGPT 30 U/L (13-56); Albumin, Serum 3.6 g/dL (3.2-5.0); Alkaline Phosphatase 110 U/L (45-117); Anion Gap 5 (5-15); BUN 19 mg/dL (7-18); BUN/Creat Ratio 27.5 RATIO (10-20); Calcium,Total 10.1 mg/dL (8.5-10.1); Chloride 106 mmol/L (98-107); Cholesterol 226 mg/dL (200); Creatinine, Serum 0.69 mg/dL (0.55-1.02); EST Glomerular Filtration Rate 92 mL/min (>60); Est Glom Filt Rate - Afr Amer 112 mL/min (>60); Glucose 90 mg/dL (74-106); High Density Lipoprotein 70 mg/dL; Potassium 3.9 mmol/L (3.5-5.1); Protein, Total 7.6 g/dL (6.4-8.2); Sodium Level 139 mmol/L (136-145); Triglycerides 111 mg/dL; Very Low Density Lipoprotein 22 mg/dL (5-40)
== END | disposition home or self-care (01) ==
LOC: BIMLAB 11:41
PROVIDERS: PCP Internal Medicine; Visit Provider Internal Medicine
DX: Z00.00 Encounter for general adult medical examination without abnormal findings (principal); M85.80 Other specified disorders of bone density and structure, unspecified site
CPT/HCPCS: 36415; 80053; 80061; 82306; 85025

== ENCOUNTER → 2024-02-04 | Outpatient (CLI) | payer SELFPAY, OTHER ==
--- NOTE | 2024-02-04 09:42 | BD_ITS ---
STUDY: DUAL ENERGY X-RAY ABSORPTIOMETRY / DXA REASON FOR EXAM: Female, 58 years old. Post menopausal. Osteopenia TECHNIQUE: Bone Mineral Density (BMD) measurements of lumbar spine and bilateral hips were obtained. COMPARISON: None. FINDINGS: Lumbar Spine (L1-L4): g/cm2 (0.636) / T-score (-3.7) / Z-score (-2.3) Findings are suggestive of osteoporosis with a high fracture risk. Left Femur Total: g/cm2 (0.832) / T-score (-0.9) / Z-score (0.1) Left Femoral Neck: g/cm2 (0.661) / T-score (-1.7) / Z-score (-0.4) Right Femur Total: g/cm2 (0.801) / T-score (-1.2) / Z-score (-0.2) Right Femoral Neck: g/cm2 (0.702) / T-score (-1.3) / Z-score (0.0) BD/Dexa Bone Density Study IMPRESSION: The patient is considered osteoporotic as outlined below according to World Walter Organization (WHO) criteria with a high fracture risk. Reference Information: The T-score is the number of standard deviations above or below the standard which is normal for young adults at their peak bone mineral density. The World Health Organization (WHO) interprets the T-scores as follows: Above -1 Normal bone density Between -1 and -2.5 Osteopenia Equal to / or below -2.5 Osteoporosis As a practical clinical guideline, osteopenia may be graded as follows: Mild -1 through -1.5 Moderate -1.6 through -2.0 Severe -2.1 through -2.4 The Z-score is the number of standard deviations above or below age-matched controls. A Z-score of less than -1.5 would be considered abnormal. References: 1. NIH Osteoporosis and Related Bone Diseases www osteo.org 2. International Society for Clinical Densitometry www iscd.org 3. National Osteoporosis Foundation www nof.org Electronically Signed: Blair Zhao MD at 9:27 EDT ,
== END | disposition home or self-care (01) ==
PROVIDERS: PCP Internal Medicine; Referring Provider Internal Medicine; Visit Provider Internal Medicine
DX: Z13.820 Encounter for screening for osteoporosis (principal); M85.80 Other specified disorders of bone density and structure, unspecified site; Z78.0 Asymptomatic menopausal state
CPT/HCPCS: 77080

== ENCOUNTER → 2024-03-15 | Outpatient (CLI) | payer OTHER, SELFPAY ==
[2024-03-15 11:00] LABS: PTHIN 74.1 pg/mL (18.4-80.1)
[2024-03-15 11:01] LABS: Vitamin D,25 Hydroxy 33.4 ng/mL
[2024-03-15 11:23] LABS: Anion Gap 5 (5-15); BUN 12 mg/dL (7-18); BUN/Creat Ratio 16.4 RATIO (10-20); Calcium,Total 9.7 mg/dL (8.5-10.1); Chloride 106 mmol/L (98-107); Creatinine, Serum 0.73 mg/dL (0.55-1.02); EST Glomerular Filtration Rate 86 mL/min (>60); Est Glom Filt Rate - Afr Amer 104 mL/min (>60); Glucose 97 mg/dL (74-106); Potassium 3.9 mmol/L (3.5-5.1); Sodium Level 139 mmol/L (136-145)
== END | disposition home or self-care (01) ==
LOC: LAB 09:55
PROVIDERS: PCP Internal Medicine; Referring Provider Internal Medicine; Visit Provider Internal Medicine
DX: M81.0 Age-related osteoporosis without current pathological fracture (principal)
CPT/HCPCS: 36415; 80048; 82306; 83970

== ENCOUNTER → 2024-06-11 | Outpatient (CLI) | payer SELFPAY, OTHER ==
--- NOTE | 2024-06-11 11:06 | VDLE_ITS ---
Reason For Study: Right leg DVT RIGHT LEFT GSV is normal. GSV is normal. CFV is compressible, spontaneous, phasic, CFV is compressible, spontaneous, phasic, competent and demonstrates normal competent, and demonstrates normal augmentation. augmentation. FV is compressible, spontaneous, phasic, FV is compressible, spontaneous, phasic, competent and demonstrates normal competent and demonstrates normal augmentation. augmentation. POP V is compressible, spontaneous, phasic, POP V is compressible, spontaneous, phasic, competent and demonstrates normal competent and demonstrates normal augmentation. augmentation. T/P Trunk is compressible. T/P Trunk is compressible. PTV is compressible. PTV is compressible. Acute deep vein thrombosis is noted in the LT PerV is compressible. Per V. It is dilated and NONCOMPRESSIBLE. Procedure This is a venous duplex using B-mode, color flow and spectral Doppler. Exam performed in department. A preliminary report was called and/or faxed to Dr. Cruz. VL/Venous Duplex US - Josemanuel Extrem Interpretation Summary Acute deep vein thrombosis is noted in the right peroneal vein. Deep veins of the left lower extremity are patent and compressible segmentally. There is no evidence of left lower extremity deep vein thrombosis. The bilateral great saphenous vei ns appear patent and compressible segmentally. Ordering Physician: ANGEL CRUZ Referring Physician: Kim Aguilar Performed By: Ella Christianson RVT
== END | disposition home or self-care (01) ==
PROVIDERS: PCP Internal Medicine
DX: I82.451 Acute embolism and thrombosis of right peroneal vein (principal)
CPT/HCPCS: 93970

== ENCOUNTER → 2024-06-23 | Outpatient (CLI) | payer SELFPAY, OTHER ==
--- NOTE | 2024-06-23 09:54 | VDLE_ITS ---
Reason For Study: F/U PERV DVT RIGHT LEFT GSV is normal. CFV is compressible, spontaneous, phasic, CFV is compressible, spontaneous, phasic, competent, and demonstrates normal competent and demonstrates normal augmentation. augmentation. FV is compressible, spontaneous, phasic, competent and demonstrates normal augmentation. POP V is compressible, spontaneous, phasic, competent and demonstrates normal augmentation. T/P Trunk is compressible. PTV is compressible. PERV IS DILATED however it is COMPRESSIBLE with flow noted. Procedure This is a venous duplex using B-mode, color flow and spectral Doppler. Exam performed in department. A preliminary report was called and/or faxed to Sigrid Inman @ [phone] @ 10:30am. VL/Venous Duplex US, Unilateral Interpretation Summary Deep veins of the right lower extremity are patent and compressible segmentally . There is no evidence of right lower extremity deep vein thrombosis. The right great sapheno us vein appears patent and compressible segmentally. Previous peroneal vein thrombus appears resolved though vessel remains dilated. Ordering Physician: Sigrid Inman Referring Physician: Kim Aguilar Performed By: Sana Lewis, RDCS, RVT
== END | disposition home or self-care (01) ==
PROVIDERS: PCP Internal Medicine; Referring Provider Nurse Practitioner Family; Visit Provider Nurse Practitioner Family
DX: S82.141A Displaced bicondylar fracture of right tibia, initial encounter for closed fracture (principal); X58.XXXA Exposure to other specified factors, initial encounter; Z86.718 Personal history of other venous thrombosis and embolism
CPT/HCPCS: 93971

== ENCOUNTER 2024-12-03 15:31 | Emergency (ER) | payer OTHER, SELFPAY ==
[2024-12-03] VITALS (8 sets, daily range): BP systolic 102–151; BP diastolic 54–86; PULSE 81–122; RESP 16–20; TEMP 36.8–38.8; O2SAT 92–96; BMI 35.9
--- NOTE | 2024-12-03 16:00 | RAD_ITS ---
STUDY: X-RAY CHEST REASON FOR EXAM: Female, 59 years old. COUGH TECHNIQUE: AP portable COMPARISON: October 17, 2023 FINDINGS: Mild increased markings left lower lobe possibly representing early mild inflammatory changes.. Lungs are otherwise clear. There is no demonstrated pleural abnormality. Normal size heart. Normal mediastinum and ambreen. Normal visualized pulmonary arteries. Normal visualized aortic arch and descending thoracic aorta. There are degenerative changes of the DIP joints and shoulders. Normal visualized ribs, clavicles, and shoulders. There is no demonstrated abnormality of the visualized soft tissue structures of the upper abdomen. RAD/Chest 1 View (Portable) IMPRESSION: Question early evolving infiltrate in the left lower lobe Clinical correlation recommended Electronically Signed: Ciro Wheeler MD at 16:14 EST ,
[2024-12-03 16:02] LABS: Absolute Lymphocyte Count 0.64 X10^3/uL (0.83-4.51); Absolute Neutrophil Count 4.4 X10^3/uL (2.0-7.7); Basophil# 0.02 X10^3/uL; Basophil% 0.4 % (0-1); Eosinophil# 0.04 X10^3/uL; Eosinophils% 0.7 % (0-5); Hematocrit 39.9 % (37-47); Hemoglobin 13.6 g/dL (12.0-15.0); Lymphocyte # 0.64 X10^3/ul (0.83-4.51); Lymphocyte % 11.5 % (19-41); Mean Corp Hgb Conc 34.1 g/dL (32-36); Mean Corpuscular Hgb 28.2 pg (27.0-32.0); Mean Corpuscular Volume 82.8 fL (81-99); Mean Platelet Vol. 9.7 fl (6.2-12.0); Monocyte# 0.44 X10^3/uL; Monocyte% 7.9 % (0-10); NRBC Flagged by Analyzer 0 % (0-5); Platelet Count 241 K/mm3 (150-450); RBC Distribution Width CV 13.2 % (11.6-14.6); RBC Distribution Width SD 39.5 fl (35.1-43.9); Red Blood Count 4.82 M/mm3 (4.2-5.4); White Blood Count 5.6 K/mm3 (4.4-11.0)
[2024-12-03 16:24] LABS: ALB/GLOB Ratio 0.9 RATIO (0.9-2.4); AST(SGOT) 20 U/L (15-37); Alanine Aminotransfer ALT/SGPT 36 U/L (13-56); Albumin, Serum 3.5 g/dL (3.2-5.0); Alkaline Phosphatase 88 U/L (45-117); Anion Gap 5 (5-15); BUN 12 mg/dL (7-18); BUN/Creat Ratio 18.5 RATIO (10-20); Calcium,Total 9.1 mg/dL (8.5-10.1); Chloride 105 mmol/L (98-107); Creatinine, Serum 0.65 mg/dL (0.55-1.02); EST Glomerular Filtration Rate 99 mL/min (>60); Est Glom Filt Rate - Afr Amer 120 mL/min (>60); Globulin 3.9 g/dL (2.2-4.2); Glucose 109 mg/dL (74-106); Potassium 3.8 mmol/L (3.5-5.1); Protein, Total 7.4 g/dL (6.4-8.2); Sodium Level 135 mmol/L (136-145)
--- NOTE | 2024-12-03 16:24 | EX.ED.DYSGE1 ---
HPI <ASIF Mccracken - Last Filed: 12/03/24 18:39> History of Present Illness Chief Complaint: General Illness Narrative Narrative: Patient is a 59-year-old female with history of osteopenia, asthma who presents to the emergency department for 1 week of worsening illness. Patient states that she had a fever of 104 today, she states that she is feeling more short of breath, she is having full body hives intermittently, epigastric pain and is here for evaluation. Patient states that she had nausea, vomiting diarrhea last week, and that lasted for 1 week. Now she states she has more of a respiratory issue with coughing, feeling short of breath PFS <ASIF Mccracken - Last Filed: 12/03/24 18:39> [facility] Medical History (Updated 12/03/24 @ 18:38 by ASIF Mccracken) Skin cancer (11/25/22) Chronic bronchitis (11/10/72) Bone fracture (05/28/24) Family history of osteoporosis Osteoporosis Elevated blood pressure reading Change in skin mole Preventative health care Post-menopausal Wears glasses History of steroid therapy Easy bruising CPAP (continuous positive airway pressure) dependence Central sleep apnea History of anaphylaxis Pneumonia Perennial non-allergic rhinitis Hyperglycemia Allergic rhinitis due to allergen Hives Community acquired bacterial pneumonia Lung disease Home Medications ?Medication ?Instructions ?Recorded ?Last Taken ?Type albuterol sulfate 2.5 mg/3 mL 2.5 mg (3 mL) continuous 10/21/22 Unknown Clinic (0.083 %) solution for nebulization nebulization ONCE #1 mL ascorbic acid (vitamin C) 1,000 mg 1,000 mg PO DAILY 02/19/23 Unknown History tablet (Vitamin C) magnesium 200 mg tablet 400 mg PO DAILY 02/19/23 Unknown History calcium carbonate 500 mg PO DAILY 08/20/23 Unknown History barley green PO DAILY 07/02/24 Unknown History cholecalciferol (vitamin D3) 25 50 mcg PO DAILY 07/02/24 Unknown History mcg/drop (1,000 unit/drop) oral drops amoxicillin 875 mg-potassium 1 tab PO BID #14 tabs 12/03/24 Unknown Rx clavulanate 125 mg tablet Allergy/AdvReac Type Severity Reaction Status Date / Time iodine Allergy Severe Unknown Verified 12/03/24 15:32 fluoxetine (From Prozac) Allergy Unknown Unknown Verified 12/03/24 15:32 wheat Allergy Unknown unknown Verified 12/03/24 15:32 Fish Containing Products Allergy PT UNSURE Verified 12/03/24 15:32 OF REACTION Family History Mother Liver cancer Skin cancer Father Small cell carcinoma Surgical History History of surgery on lower extremity History of basal cell carcinoma (BCC) excision History of colonoscopy (02/25/23) Social History household members: spouse and children current occupational status: employed and previously employed pets and animals: No Smoking Status: Never smoker alcohol intake: never substance use type: does not use caffeine: Yes (1) Type: coffee frequency: 5-6 times per week seatbelt use: always do you feel safe at home: Yes ROS <ASIF Mccracken - Last Filed: 12/03/24 18:39> ROS ED ROS Narrative Constitutional: Negative for weight loss, weakness. Positive for fever and chills Eyes: Negative for vision loss, vision change, double vision ENT: Negative for any sore throat, congestion. Positive for left ear pain Cardiovascular: Negative for any chest pain, tightness, palpitations Respiratory: Negative for any sputum production, hemoptysis, dyspnea on exertion, orthopnea. Positive for cough, dyspnea Gastrointestinal: Negative for any abdominal pain, nausea, vomiting, diarrhea, constipation, blood in stool, blood in vomit : Negative for any urinary frequency, dysuria, retention, blood in urine Muscle skeletal: Negative for any neck pain, back pain Neurological: Negative for any headache, syncope, dizziness Skin: Negative for any rashes, itching, abrasions, lacerations Psychiatric: Negative for any depression, anxiety, stress, suicidal ideation, homicidal ideation Hematologic: Negative for any excessive bruising, easy bleeding EXAM <ASIF Mccracken - Last Filed: 12/03/24 18:39> Physical Exam Narrative Exam Narrative: Vital signs reviewed. Patient is tachycardic, febrile on my initial examination. Patient does have some hives to the left side of her face. Patient does look like she does not feel well. HEET: Head normocephalic atraumatic, TMs clear bilaterally. Posterior pharynx is clear, dry mucous membranes. Nares clear bilaterally. Hives with some swelling to the left eye no angioedema, no difficulty speaking, no stridor Neck: Supple with no lymphadenopathy or tenderness. No signs of meningismus. Cardiac: Tachycardic rate no murmurs gallops or rubs, equal peripheral pulses bilaterally. Respiratory: Patient does have adventitious, rales, some crackles the left lower lobe. No chest tenderness. Abdomen: Soft, nontender, nondistended. No abdominal bruit or pulsatile masses. No hepatosplenomegaly Extremities: No peripheral edema, no signs of gross trauma or deformity. Active full range of motion of all extremities. Neuro: Cranial nerves II through XII intact, no focal neurological deficits. Skin: Clean dry and intact with no rash, purpura, petechiae, vesicles or pustules. Backs/flank: No CVA tenderness, no midline spinal tenderness, no deformity. Psych: Normal mood and affect. No SI, HI or acute psychosis. Const Vital Signs: 12/03/24 15:32 12/03/24 15:34 12/03/24 16:34 Temperature 101.8 F H 101.8 F H 100.4 F H Temperature Source Oral Oral Oral Pulse Rate 122 H 122 H 98 Respiratory Rate 20 H 20 H 16 Blood Pressure 151/86 H 151/86 H 135/73 H Blood Pressure Mean 107 107 93 Pulse Ox 96 96 93 Oxygen Delivery Method Room Air Room Air Room Air 12/03/24 16:50 12/03/24 17:30 12/03/24 17:54 Temperature 99.6 F H Temperature Source Oral Pulse Rate 93 Respiratory Rate 18 Blood Pressure 113/54 L 104/63 Blood Pressure Mean 73 76 Pulse Ox 92 92 94 Oxygen Delivery Method Room Air Room Air 12/03/24 18:40 Temperature 98.3 F Temperature Source Pulse Rate 81 Respiratory Rate 16 Blood Pressure 102/67 Blood Pressure Mean 78 Pulse Ox 94 Oxygen Delivery Method <Dr. Jose Montes, DO - Last Filed: 12/03/24 22:29> Physical Exam Const Vital Signs: 12/03/24 15:32 12/03/24 15:34 12/03/24 16:34 Temperature 101.8 F H 101.8 F H 100.4 F H Temperature Source Oral Oral Oral Pulse Rate 122 H 122 H 98 Respiratory Rate 20 H 20 H 16 Blood Pressure 151/86 H 151/86 H 135/73 H Blood Pressure Mean 107 107 93 Pulse Ox 96 96 93 Oxygen Delivery Method Room Air Room Air Room Air 12/03/24 16:50 12/03/24 17:30 12/03/24 17:54 Temperature 99.6 F H Temperature Source Oral Pulse Rate 93 Respiratory Rate 18 Blood Pressure 113/54 L 104/63 Blood Pressure Mean 73 76 Pulse Ox 92 92 94 Oxygen Delivery Method Room Air Room Air 12/03/24 18:40 Temperature 98.3 F Temperature Source Pulse Rate 81 Respiratory Rate 16 Blood Pressure 102/67 Blood Pressure Mean 78 Pulse Ox 94 Oxygen Delivery Method MDM <ASIF Mccracken - Last Filed: 12/03/24 18:39> MDM Lab Data Labs: Laboratory Results - last 24 hr 12/03/24 12/03/24 15:55 16:45 WBC 5.6 RBC 4.82 Hgb 13.6 Hct 39.9 MCV 82.8 MCH 28.2 MCHC 34.1 RDW Std Deviation 39.5 RDW Coeff of Ashutosh 13.2 Plt Count 241 MPV 9.7 Immature Gran % (Auto) 0.500 Neut % (Auto) 79.0 H Lymph % (Auto) 11.5 L [place] % (Auto) 7.9 Eos % (Auto) 0.7 Baso % (Auto) 0.4 Absolute Neuts (auto) 4.4 Absolute Lymphs (auto) 0.64 L Nucleated RBC % 0 Sodium 135 L Potassium 3.8 Chloride 105 Carbon Dioxide 26.0 Anion Gap 5 BUN 12 Creatinine 0.65 Est GFR (MDRD) Af Amer 120 Est GFR (MDRD) Non-Af 99 BUN/Creatinine Ratio 18.5 Glucose 109 H Lactic Acid 0.7 Calcium 9.1 Total Bilirubin 0.30 AST 20 ALT 36 Alkaline Phosphatase 88 Total Protein 7.4 Albumin 3.5 Globulin 3.9 Albumin/Globulin Ratio 0.9 Lipase 20 Urine Color Yellow Urine Clarity Clear Urine pH 8.0 Ur Specific Willard 1.010 Urine Protein 15 H Urine Glucose (UA) Normal Urine Ketones 5 H Urine Occult Blood Negative Urine Nitrite Negative Urine Bilirubin Negative Urine Urobilinogen Normal Ur Leukocyte Esterase Negative Urine RBC 0 SEEN Urine WBC 0-5 SEEN Ur Squamous Epith Cells 0-5 SEEN Urine Bacteria 0 SEEN Urine Mucus 0 SEEN Radiography Diagnostic Testing: Clinical Impression(s) from Imaging Studies Chest X-Ray 12/03/24 16:00 IMPRESSION: Question early evolving infiltrate in the left lower lobe Clinical correlation recommended Electronically Signed: Ciro Wheeler MD at 16:14 EST Reading Location ID and State: [address] [place] [address] Tel , Service support , Treatment and Re-Evaluation :: Differential diagnosis includes however is not limited to: COVID-19, influenza, RSV, community-acquired pneumonia, acute cholecystitis, other viral-like illness, bronchitis, COPD/asthma exacerbation, angioedema Patient does appear as she does not feel well, patient is tachycardic, febrile. Septic workup will be completed including 2 sets of blood cultures, lactic acid. Patient will be treated with IV fluids, Toradol, Tylenol. Patient will receive a two-view chest x-ray, COVID-19 influenza RSV swab. Patient will receive IV Zofran. All radiologic examinations were read, reviewed by the emergency department attending. From these reads, a plan of care will be put in place. Patient did have some protocol orders placed. Patient's CBC was unremarkable, chemistries were unremarkable. Lipase and lactic acid will be ordered as well as 2 sets of blood cultures. Chest x-ray shows early involving infiltrate to the left lower lobe, this does correlate with my physical examination. Patient will receive a COVID-19 influenza RSV, IV fluids, Tylenol, Toradol. Patient will need to be reevaluated. Patient was positive for influenza A, chest x-ray showed question early evolving infiltrate in the left lower lobe. Patient on reevaluation had improved vitals. Patient was feeling better. Patient was ambulated around the department and did not drop below 94%. Pay states she feels well enough to go home. At this time, patient will be starting for Augmentin for twice a day for 1 week secondary to the infiltrate. I do understand that this could be viral pneumonia however if the patient gets worse she may need to be seen again. Patient will follow-up closely outpatient. All questions answered, patient stable for discharge. <Dr. Jose Montes, DO - Last Filed: 12/03/24 22:29> [facility] Lab Data Labs: Laboratory Results - last 24 hr 12/03/24 12/03/24 15:55 16:45 WBC 5.6 RBC 4.82 Hgb 13.6 Hct 39.9 MCV 82.8 MCH 28.2 MCHC 34.1 RDW Std Deviation 39.5 RDW Coeff of Ashutosh 13.2 Plt Count 241 MPV 9.7 Immature Gran % (Auto) 0.500 Neut % (Auto) 79.0 H Lymph % (Auto) 11.5 L [place] % (Auto) 7.9 Eos % (Auto) 0.7 Baso % (Auto) 0.4 Absolute Neuts (auto) 4.4 Absolute Lymphs (auto) 0.64 L Nucleated RBC % 0 Sodium 135 L Potassium 3.8 Chloride 105 Carbon Dioxide 26.0 Anion Gap 5 BUN 12 Creatinine 0.65 Est GFR (MDRD) Af Amer 120 Est GFR (MDRD) Non-Af 99 BUN/Creatinine Ratio 18.5 Glucose 109 H Lactic Acid 0.7 Calcium 9.1 Total Bilirubin 0.30 AST 20 ALT 36 Alkaline Phosphatase 88 Total Protein 7.4 Albumin 3.5 Globulin 3.9 Albumin/Globulin Ratio 0.9 Lipase 20 Urine Color Yellow Urine Clarity Clear Urine pH 8.0 Ur Specific Willard 1.010 Urine Protein 15 H Urine Glucose (UA) Normal Urine Ketones 5 H Urine Occult Blood Negative Urine Nitrite Negative Urine Bilirubin Negative Urine Urobilinogen Normal Ur Leukocyte Esterase Negative Urine RBC 0 SEEN Urine WBC 0-5 SEEN Ur Squamous Epith Cells 0-5 SEEN Urine Bacteria 0 SEEN Urine Mucus 0 SEEN Radiography Diagnostic Testing: Clinical Impression(s) from Imaging Studies Chest X-Ray 12/03/24 16:00 IMPRESSION: Question early evolving infiltrate in the left lower lobe Clinical correlation recommended Electronically Signed: Ciro Wheeler MD at 16:14 EST Reading Location ID and State: [address] [place] [address] Tel , Service support , Treatment and Re-Evaluation :: Differential diagnosis includes however is not limited to: COVID-19, influenza, RSV, community-acquired pneumonia, acute cholecystitis, other viral-like illness, bronchitis, COPD/asthma exacerbation, angioedema Patient does appear as she does not feel well, patient is tachycardic, febrile. Septic workup will be completed including 2 sets of blood cultures, lactic acid. Patient will be treated with IV fluids, Toradol, Tylenol. Patient will receive a two-view chest x-ray, COVID-19 influenza RSV swab. Patient will receive IV Zofran. All radiologic examinations were read, reviewed by the emergency department attending. From these reads, a plan of care will be put in place. Patient did have some protocol orders placed. Patient's CBC was unremarkable, chemistries were unremarkable. Lipase and lactic acid will be ordered as well as 2 sets of blood cultures. Chest x-ray shows early involving infiltrate to the left lower lobe, this does correlate with my physical examination. Patient will receive a COVID-19 influenza RSV, IV fluids, Tylenol, Toradol. Patient will need to be reevaluated. Patient was positive for influenza A, chest x-ray showed question early evolving infiltrate in the left lower lobe. Patient on reevaluation had improved vitals. Patient was feeling better. Patient was ambulated around the department and did not drop below 94%. Pay states she feels well enough to go home. At this time, patient will be starting for Augmentin for twice a day for 1 week secondary to the infiltrate. I do understand that this could be viral pneumonia however if the patient gets worse she may need to be seen again. Patient will follow-up closely outpatient. All questions answered, patient stable for discharge. ED attending note: I evaluated the patient in conjunction with the MARIO. I agree with his/her statements and above findings. I have personally performed a face to face assessment of the patient and have reviewed the MARIO Note. I performed a substantive portion of the visit including all aspects of the following. I personally saw the patient performed chart review, physical exam, reviewed labs, imaging (if obtained), and formulated a treatment and management plan. This note was generated with [employer] dictation software. It may contain incorrect words, spelling, and punctuation that were not noted in review of the chart prior to signing. Discharge Plan Triage Chief Complaint: General Illness Other Complaint: Abd Pain ED Midlevel Provider: Ko Levy ED Provider: Jose Montes Dx/Rx/DC Orders Clinical Impression: Influenza A, Fever, Pneumonia Instructions: ED Influenza (Adult), ED Pneumonia (Adult) Prescriptions: New amoxicillin-pot clavulanate 875-125 mg tablet 1 tab PO BID Qty: 14 0RF No Action albuterol sulfate 2.5 mg /3 mL (0.083 %) solution for nebulization 2.5 mg continuous nebulization ONCE Qty: 1 0RF calcium carbonate 500 mg calcium (1,250 mg) tablet 500 mg PO DAILY cholecalciferol (vitamin D3) 25 mcg/drop ( 1,000 unit/drop) drops 50 mcg PO DAILY barley green powder PO DAILY ascorbic acid (vitamin C) [Vitamin C] 1,000 mg Tablet 1,000 mg PO DAILY magnesium 200 mg Tablet 400 mg PO DAILY Primary Care Provider: Kim Aguilar Referrals: Kim Aguilar MD [Primary Care Provider] - Activity Restrictions/Additional Instructions: You may take 600 mg of ibuprofen every 8 hours for pain and fever. You may also take 1 g of Tylenol which is 1000 mg every 6-8 hours for pain and fever. Make sure that you maintain hydration. Print Language: Serbian Disposition Disposition: Home, Self Care Discharge Date/Time: 12/03/24 18:47
[2024-12-03 16:48] LABS: Lipase 20 U/L (13-75)
[2024-12-03 16:54] LABS: Bacteria 0 SEEN /hpf (None Seen); Mucous, Urine 0 SEEN /hpf (<or=2+); Red Blood Cells-Urine 0 SEEN /hpf (0-5)
[2024-12-03] MEDS: Ondansetron 4 MG/2 ML Vial IV (16:54)
[2024-12-03] MEDS: 0.9% Normal Saline (1000mL) 1,000 ML 999 ML IV (16:54)
[2024-12-03] MEDS: Ketorolac 15 MG/ML Vial IV (16:55)
[2024-12-03 16:56] LABS: Glucose, Dipstick Normal (Normal); Ketone-Dipstick 5 mg/dl (Negative); Leukocyte Esterase-Dipstick Negative /ul (Negative); Nitrite-Dipstick Negative (Negative); Occult Blood-Urine Negative /ul (Negative); Protein-Dipstick 15 mg/dl (Negative); Urine Bilirubin Dipstick Negative (Negative); Urine Urobilinogen Normal (Normal)
[2024-12-03] MEDS: Acetaminophen 500 MG Tablet 1000 MG PO (16:56)
[2024-12-03 16:59] LABS: Color, Urine Yellow (Yellow); Urine Clarity Clear (Clear)
[2024-12-03 17:03] LABS: Squamous Epithelial Cells - UA 0-5 SEEN /hpf (5-10); White Blood Cells 0-5 SEEN /hpf (0-5)
[2024-12-03 17:27] LABS: Lactic Acid 0.7 mmol/L (0.4-1.9)
--- NOTE | 2024-12-03 17:38 | NURSING ---
Dr Montes notified of Pt being flu A+
[2024-12-03] MEDS: Amox/Clavulanate 875 MG Tablet PO (18:39)
== END 2024-12-03 18:47 | disposition home or self-care (01) ==
PROVIDERS: Nurse Practitioner; Emergency Provider Emergency Medicine; PCP Internal Medicine; Visit Provider Emergency Medicine
DX: J10.00 Influenza due to other identified influenza virus with unspecified type of pneumonia (principal)
CPT/HCPCS: 71045; 80053; 81001; 83605; 83690; 85025; 87040; 87631; 94760; 96361; 96374; 96375; 99285; A4216; J2405